=== PATIENT | male | born 1990 | race African-American/Black ===

== ENCOUNTER → 2017-07-27 | Outpatient (CLI) | payer BC ==
--- NOTE | 2017-07-27 14:58 | Diagnostic Imaging Report ---
2 views of the lumbar spine. INDICATION: Back pain. FINDINGS: There is straightening of the lumbar spine curvature suggestive of muscle spasm. The vertebral body heights are preserved. The alignment of the posterior spinal alignment is satisfactory. Disc heights are also preserved. No osteophyte formation is seen. There is a rudimentary disc at S1/S2 level. The SI joints appear symmetric. The paraspinal soft tissues appear unremarkable. IMPRESSION: Straightening of the lumbar spine curvature could relate to muscle spasm. Dictated by: Dictated on workstation # [id number]
== END ==
LOC: RAD 10:06
PROVIDERS: ATTEND Nurse Practitioner Family
DX: M54.16 Radiculopathy, lumbar region (principal)
CPT/HCPCS: 72100